=== PATIENT | male | born 1965 | race Two or more races ===

== ENCOUNTER 2021-06-19 13:26 | Emergency (ER) | payer MEDICAID, OTHER ==
[~2021-06-19] VITALS: Ht 175.3 cm; Wt 95.3 kg
[2021-06-19 14:42] VITALS: BP 182/95
== END 2021-06-19 15:31 | disposition home or self-care (01) ==
LOC: ER 13:26
DX: M51.36 Other intervertebral disc degeneration, lumbar region (principal); M43.16 Spondylolisthesis, lumbar region; I10 Essential (primary) hypertension; E78.5 Hyperlipidemia, unspecified; Z90.49 Acquired absence of other specified parts of digestive tract
CPT/HCPCS: 72100